=== PATIENT | male | born 1950 | race Hispanic/Latino ===

== ENCOUNTER 2018-12-06 15:46 | Emergency (ER) | payer OTHER ==
[~2018-12-06] VITALS: Ht 172.7 cm; Wt 103.4 kg
[~2018-12-06 15:46] MED LIST: ALLOPURINOL300 MG PO; AMITRIPTYLINE H25 MG PO; AMLODIPINE BESY10 MG PO; ASPIRIN CHEW81 MG PO; BENTYL20 MG PO; CIPRO500 MG PO; CYMBALTA30 MG PO; DOCUSATE SODIU100 MG PO; DOK100 MG PO; FAMOTIDINE20 MG PO; FEOSOL325 MG PO; FERROUS GLUCON324 M1 PO; FLAGYL500 MG PO; FLUOXETINE HCL20 MG PO; GLIPIZIDE5 MG PO; GUAIFENESI100 MG/5 M PO; HUMULIN R100 UNIT/2 SC; HYDROCHLOROTHIA25 MG PO; LEVEMIR100 UNIT/1 SC; LISINOPRIL10 MG PO; METFORMIN HCL500 MG PO; METOCLOPRAMIDE10 MG PO; METOPROLOL TART50 MG PO; MUCINEX DM ER1 EACH PO; OMEPRAZOLE40 MG PO; PRAZOSIN HCL2 MG PO; SIMVASTATIN20 MG PO; ULTRAM50 MG PO; VESICARE5 MG PO; VITAMIN D250000 UNIT PO; XANAX0.5 MG PO
--- OUTSIDE RECORDS SUMMARY | 2018-12-06 15:48 | XMS REPORT | Clinical Summary ---
Author Author 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 Last Filed Vital Signs Not on file Plan of Treatment Not on file Results Not on fileafter 12/05/2017 Insurance Payer Benefit Subscriber ID Type Phone Address Plan / Group [employer] [facility] [facility] [address] ([address]) [place] [phone]
--- OUTSIDE RECORDS SUMMARY | 2018-12-06 15:48 | XMS REPORT ---
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 Allergies, Adverse Reactions, Alerts This patient has no known allergies or adverse reactions. Medications This patient has no known medications. Results Test Description Test Time Test Comments Text Results Atomic Results Result Comments POCT-CREATININE 2016-09-22 11:06:00 POC-CREATININE (DEAN) (test ugpv=7337) 1.1 mg/dL 0.6-1.3 TESTED AT [address] [address] POC-EGFR (BEAKER) (test rpsx=5257) 67 mL/min/1.73M2
--- NOTE | 2018-12-06 17:35 | Diagnostic Imaging Report ---
ADDENDUM #1 The images and report were reviewed and signed by Dr. Latanya Elaine, neuroradiology faculty, on 12/06/2018 at 2222 hours. Signed by: Dr. Latanya Elaine M.D. on 12/06/2018 10:22 PM ORIGINAL REPORT Exam: Noncontrast head, maxillofacial, and cervical spine CT History: 68-year-old male, Fall, pain Comparison studies: None Technique: Axial images were obtained from the brain , face, and cervical spine. Coronal and sagittal images reconstructed from the axial data. Dose modulation, iterative reconstruction, and/or weight based adjustment of the mA/kV was utilized to reduce the radiation dose to as low as reasonably achievable. Intravenous contrast: None Findings: Head CT: Scalp/skull: Right frontal scalp swelling. No fractures, blastic or lytic lesions. Sulci/Ventricles: Mildly prominent. No hydrocephalus. Extra-axial spaces: No masses. No fluid collections. Parenchyma: Mild scattered white matter hypodensities compatible with microvascular ischemic angiopathy.. No masses, hemorrhage, acute or chronic cortical vascular insults. Sellar/suprasellar region: No abnormalities. Craniocervical junction: Patent foramen magnum. No Chiari one malformation. Maxillofacial CT: Soft tissues: Soft tissue swelling over the nasal bridge and over the cartilaginous portion of the nose. Bones: No fractures or bone abnormalities. No definitive nasal bone fracture. Orbits: Globes: Intact Extra or intraconal abnormalities: None. Cervical spine CT: Airway: Patent. Fractures: None seen, however visualization of the lower cervical spine is limited due to photon starvation from body habitus. Soft tissues: No gross abnormalities. Atlantoaxial articulation: Intact. Alignment: Normal lordosis. No scoliosis. Cervicomedullary junction: No abnormalities. Patent foramen magnum. Vertebrae: No infection or neoplasm. Degenerative changes: Multilevel disc degenerative changes with large flowing osteophytes anteriorly from C5 through T1.. Incidental findings: None. IMPRESSION: Head/maxillofacial CT: Mild soft tissue swelling over the low right frontal scalp and nose without underlying fracture or intracranial abnormality. Chronic findings: 1. Mild white matter microvascular ischemic changes. 2. Mild generalized volume loss. Cervical spine CT: 1. No acute abnormalities. 2. Cannot adequately evaluate for ligament, spinal cord and or vascular abnormalities. Preliminary report was provided by the neuroradiology fellow. Final read to follow. Signed by: Raffaele Benitez MD on 12/06/2018 5:32 PM
--- NOTE | 2018-12-06 17:41 | Diagnostic Imaging Report ---
HAND BILATERAL 3 OR MORE VIEWS - 3 views HISTORY: Status post fall COMPARISON: None available. FINDINGS: Bones: Comminuted fracture of the base of the right fifth metacarpal. Transverse fracture through the base of the right fifth proximal phalanx. The alignment is near anatomic. 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 Bilateral ulnar minus variance Soft tissues: Soft tissue swelling about the right fifth metacarpal and base of the fifth proximal phalanx. IMPRESSION: Comminuted fracture of the base of the right fifth metacarpal and transverse, nondisplaced fracture through the base of the right fifth proximal phalanx. Signed by: Raffaele Benitez MD on 12/06/2018 5:38 PM
[2018-12-06] MEDS ORDERED: LIDOCAINE HCL 1% 2 ML AMP INJ NR (18:30)
[2018-12-06] MEDS ORDERED: BACITRACIN ZINC 0.9GM TP ONE (18:30)
[2018-12-06] MEDS ORDERED: IBUPROFEN 400 MG TAB PO PRN (18:45)
[2018-12-06] MEDS ORDERED: HYDROMORPHONE 1MG/1ML INJ IM STA (20:07)
[2018-12-06] MEDS ORDERED: HYDROMORPHONE 2MG/ML 2 MG/ML ML ONE (20:16)
== END 2018-12-06 21:22 | disposition home or self-care (01) ==
LOC: ER 15:46
DX: S52.572A Other intraarticular fracture of lower end of left radius, initial encounter for closed fracture (principal); S00.31XA Abrasion of nose, initial encounter; S62.346A Nondisplaced fracture of base of fifth metacarpal bone, right hand, initial encounter for closed fracture; S62.646A Nondisplaced fracture of proximal phalanx of right little finger, initial encounter for closed fracture; E11.9 Type 2 diabetes mellitus without complications; S01.81XA Laceration without foreign body of other part of head, initial encounter; W01.0XXA Fall on same level from slipping, tripping and stumbling without subsequent striking against object, initial encounter; Y92.009 Unspecified place in unspecified non-institutional (private) residence as the place of occurrence of the external cause; Z79.82 Long term (current) use of aspirin; Z79.4 Long term (current) use of insulin; Z88.5 Allergy status to narcotic agent
CPT/HCPCS: 12011; 29125; 70450; 70486; 72125; 73130; 96372; 99283; J1170; J2001

== ENCOUNTER 2021-01-20 11:07 | Observation (INO) | payer OTHER ==
[~2021-01-20] VITALS: Ht 172.7 cm; Wt 103.4 kg
[2021-01-20] MEDS ORDERED: SODIUM CHLORIDE 0.9% 500ML 500 ML IV ONE (11:45)
[2021-01-20] MEDS ORDERED: DEXTROSE 50% SYRINGE 50 ML IV STA ×2 (11:53→15:50)
[2021-01-20] MEDS ORDERED: DEXTROSE 5% 1,000 ML IV SCH (12:00)
[2021-01-20] MEDS ORDERED: DEXTROSE 50% SYRINGE 50 ML IV ONE (12:01)
[2021-01-20] MEDS: OCTREOTIDE ACETATE 0.05 MG/ML AMP SQ SCH ×2 (12:26→19:37)
[2021-01-20 12:59] LABS: CREATINE KINASE MB 2.2 ng/mL (0-5.0)
[2021-01-20 13:10] LABS: BASOPHILS % 0.4 % (0.0-1.0); EOSINOPHILS # (AUTO) 0.4 (0.0-0.4); EOSINOPHILS % 3.8 % (0.0-6.0); HEMATOCRIT 35.6 % (38.2-49.6); HEMOGLOBIN 11.8 g/dL (14.0-18.0); LYMPHOCYTES # (AUTO) 1.7 (1.0-3.2); MEAN CORPUSCULAR HGB CONC 33.1 g/dL (31-35); MEAN CORPUSCULAR VOLUME 96.5 fL (81-99); MONOCYTES # (AUTO) 0.7 (0.2-0.8); MONOCYTES % 7.2 % (4.4-11.3); NEUTROPHILS # (AUTO) 6.8 (2.1-6.9); NEUTROPHILS % 70.3 % (38.7-80.0); PLATELET COUNT 208 x10e3/uL (140-360); RED BLOOD COUNT 3.69 x10e6/uL (4.3-5.7); RED CELL DISTRIBUTION WIDTH 13.9 % (11.7-14.4)
[2021-01-20 13:15] LABS: ABG HCO3 25 mmol/L (22-26); ABG PCO2 45 mmHg (35-45); ABG PH 7.35 (7.35-7.45); ABG PO2 93 mmHg (80-105); ABG TCO2 26
[2021-01-20 13:33] LABS: ALBUMIN 3.8 g/dL (3.5-5.0); ALBUMIN/GLOBULIN RATIO 1.1 (0.8-2.0); ANION GAP 10.2 mmol/L (8-16); CALCIUM 8.5 mg/dL (8.4-10.2); CREATININE, SERUM 2.53 mg/dL (0.72-1.25); MAGNESIUM 1.9 MG/DL (1.3-2.1); POTASSIUM 4.2 mmol/L (3.5-5.1)
[2021-01-20 15:42] LABS: CLARITY,URINE CLEAR (CLEAR); COLOR,URINE YELLOW (YELLOW); LEUKOCYTE ESTERASE ,URINE NEGATIVE (NEGATIVE); NITRITE,URINE NEGATIVE (NEGATIVE)
[2021-01-20 15:43] LABS: KETONES,URINE NEGATIVE (NEGATIVE); PROTEIN,URINE DIPSTICK 1+ (NEGATIVE); URINE UROBILINOGEN 0.2 mg/dL (0.2 - 1)
[2021-01-20] MEDS ORDERED: DEXTROSE 50% SYRINGE 50 ML IV PRN ×2 (15:45→16:15)
[2021-01-20] MEDS ORDERED: ONDANSETRON HCL INJ 2MG/ML 2ML 2 MG/ML VIAL IV PRN (15:45)
[2021-01-20 15:46] LABS: AMPHETAMINES SCREEN,URINE NEGATIVE (NEGATIVE); BENZODIAZEPINES SCREEN,URINE POSITIVE (NEGATIVE); PHENCYCLIDINE SCREEN,URINE NEGATIVE (NEGATIVE)
[2021-01-20] MEDS ORDERED: HYDRALAZINE HCL 20 MG/ML VIAL IV PRN (16:15)
[2021-01-20] MEDS ORDERED: ACETAMINOPHEN 325 MG TAB PO PRN (16:15)
[2021-01-20] MEDS ORDERED: DEXTROSE 5%/0.9% SOD CHL 1,000 ML IV SCH (16:45)
[2021-01-20 17:17] VITALS: BP 154/88
[2021-01-20 18:14] VITALS: BP 154/88
[2021-01-20 19:05] VITALS: BP 128/76
[2021-01-20 20:30] VITALS: BP 128/76
[2021-01-20] MEDS ORDERED: ROPINIROLE HCL1 MG PO (20:45)
[2021-01-20] MEDS ORDERED: OXYBUTYNIN CHLOR5 M1 PO (20:45)
[2021-01-20] MEDS ORDERED: CETIRIZINE HCL10 M1 PO (20:45)
[2021-01-20] MEDS ORDERED: FUROSEMIDE40 MG PO (20:45)
[2021-01-20] MEDS ORDERED: VICODIN HP 10-1 EAC1 PO (20:45)
[2021-01-20] MEDS ORDERED: NEURONTIN300 MG PO (20:45)
[2021-01-20] MEDS ORDERED: VITAMIN D350 MCG PO (20:45)
[2021-01-20] MEDS ORDERED: METHOCARBAMOL500 MG PO (20:45)
[2021-01-20] MEDS ORDERED: B-12500 MCG PO (20:45)
[2021-01-20] MEDS ORDERED: ALENDRONATE SOD70 MG PO (20:45)
[2021-01-20 21:21] LABS: CREATINE KINASE MB 7.1 ng/mL (0-5.0)
[2021-01-20] MEDS ORDERED: LORATADINE 10 MG TAB PO ONE (21:45)
[2021-01-20] MEDS: DEXTROSE 5%/0.9% SOD CHL 1,000 ML IV SCH (23:05)
[2021-01-21] MEDS: OCTREOTIDE ACETATE 0.05 MG/ML AMP SQ SCH ×3 (00:23→12:00)
[2021-01-21 01:22] VITALS: BP 118/74
[2021-01-21 05:20] LABS: BASOPHILS # (AUTO) 0.1 (0.0-0.1); BASOPHILS % 0.5 % (0.0-1.0); EOSINOPHILS # (AUTO) 0.3 (0.0-0.4); EOSINOPHILS % 2.6 % (0.0-6.0); HEMOGLOBIN 13.4 g/dL (14.0-18.0); LYMPHOCYTES % 16.7 % (18.0-39.1); MEAN CORPUSCULAR HEMOGLOBIN 31.5 pg (28-32); MEAN CORPUSCULAR HGB CONC 33.5 g/dL (31-35); MEAN CORPUSCULAR VOLUME 94.1 fL (81-99); MONOCYTES # (AUTO) 0.7 (0.2-0.8); MONOCYTES % 5.7 % (4.4-11.3); NEUTROPHILS # (AUTO) 8.7 (2.1-6.9); NEUTROPHILS % 74.2 % (38.7-80.0); PLATELET COUNT 255 x10e3/uL (140-360); RED BLOOD COUNT 4.25 x10e6/uL (4.3-5.7); RED CELL DISTRIBUTION WIDTH 13.5 % (11.7-14.4)
[2021-01-21 05:37] VITALS: BP 131/83
[2021-01-21 06:02] LABS: ALBUMIN 3.8 g/dL (3.5-5.0); ALBUMIN/GLOBULIN RATIO 0.9 (0.8-2.0); ANION GAP 13.7 mmol/L (8-16); CALCIUM 9.1 mg/dL (8.4-10.2); CHOL/HDL RATIO 2.9 (3.9-4.7); CREATININE, SERUM 2.17 mg/dL (0.72-1.25); POTASSIUM 4.7 mmol/L (3.5-5.1)
[2021-01-21 06:21] LABS: CREATINE KINASE MB 5.9 ng/mL (0-5.0)
[2021-01-21 08:00] VITALS: BP 139/89
[2021-01-21] MEDS ORDERED: LORATADINE 10 MG TAB PO SCH (09:00)
[2021-01-21] MEDS ORDERED: FLUTICASONE PROPIONATE NASAL SPRAY NS SCH (09:30)
[2021-01-21] MEDS: DEXTROSE 5%/0.9% SOD CHL 1,000 ML IV SCH (09:59)
[2021-01-21 10:02] VITALS: BP 139/89
[2021-01-21 11:46] VITALS: BP 134/90
[2021-01-21] MEDS ORDERED: GUAIFENESIN 600MG/DEXTROMETHORPHAN 30MG TABSR PO PRN (14:15)
[2021-01-21] MEDS ORDERED: DOCUSATE SODIUM 100 MG CAP PO PRN (14:15)
[2021-01-21] MEDS ORDERED: DICYCLOMINE HCL 20 MG TAB PO PRN (14:15)
[2021-01-21] MEDS ORDERED: HYDROCODONE/APAP 10MG-325MG TAB PO PRN (14:15)
[2021-01-21 16:00] VITALS: BP 151/92
[2021-01-21] MEDS ORDERED: GLIPIZIDE 5 MG TAB PO SCH (16:30)
[2021-01-21] MEDS ORDERED: ASPIRIN 81 MG CHEW TAB PO SCH (17:00)
[2021-01-21] MEDS ORDERED: METOPROLOL TARTRATE 50 MG TAB PO SCH (17:00)
[2021-01-21] MEDS ORDERED: GABAPENTIN 300 MG CAP PO SCH (17:00)
[2021-01-21] MEDS ORDERED: AMITRIPTYLINE HCL 25 MG TAB PO SCH (21:00)
[2021-01-21] MEDS ORDERED: SIMVASTATIN 20 MG TAB PO SCH (21:00)
[2021-01-22] MEDS ORDERED: PANTOPRAZOLE SOD 40 MG TABEC PO SCH (07:30)
[2021-01-22] MEDS ORDERED: ALLOPURINOL 300 MG TAB PO SCH (09:00)
[2021-01-22] MEDS ORDERED: DULOXETINE HCL 30 MG DELAYED RELEASE PO SCH (09:00)
[2021-01-22] MEDS ORDERED: AMLODIPINE BESYLATE 10 MG TAB PO SCH (09:00)
[2021-01-22] MEDS ORDERED: OXYBUTYNIN CHLORIDE XL 5 MG TAB PO SCH (09:00)
== END 2021-01-21 16:33 | disposition home or self-care (01) ==
LOC: ER 11:40 → INTOOBSV 15:38 → ERHOLD 15:38 → MED/SURG2 16:40
PROVIDERS: ADMIT Internal Medicine; ATTEND Internal Medicine
DX: T42.4X1A Poisoning by benzodiazepines, accidental (unintentional), initial encounter (principal); Y92.019 Unspecified place in single-family (private) house as the place of occurrence of the external cause; E11.649 Type 2 diabetes mellitus with hypoglycemia without coma; E78.00 Pure hypercholesterolemia, unspecified; N17.9 Acute kidney failure, unspecified; E11.22 Type 2 diabetes mellitus with diabetic chronic kidney disease; I12.9 Hypertensive chronic kidney disease with stage 1 through stage 4 chronic kidney disease, or unspecified chronic kidney disease; N18.9 Chronic kidney disease, unspecified; G47.30 Sleep apnea, unspecified; G89.29 Other chronic pain; Z96.652 Presence of left artificial knee joint; Z83.3 Family history of diabetes mellitus; Z82.49 Family history of ischemic heart disease and other diseases of the circulatory system; Z88.5 Allergy status to narcotic agent; Z79.4 Long term (current) use of insulin
CPT/HCPCS: 36415 ×2; 36600; 51700; 70450; 71045; 80053 ×2; 80061; 80307; 80320; 80329; 81001; 82550 ×2; 82553 ×2; 82805; 82948 ×2; 83735; 83880; 84484 ×2; 85025 ×2; 87086; 93005; 96360; 96361; 99251; 99285; G0378 ×2; J2354 ×2; J7040; J7042 ×2; J7070; J7799

== ENCOUNTER → 2021-02-06 | Emergency (ER) | payer OTHER ==
[~2021-02-06] VITALS: Ht 172.7 cm; Wt 110.7 kg
[~2021-02-06] MED LIST changes: +ALENDRONATE SOD70 MG PO; +B-12500 MCG PO; +CETIRIZINE HCL10 M1 PO; +CYCLOBENZAPRINE5 MG PO; +DEXAMETHASONE 4 MG TAB ONE; +FUROSEMIDE40 MG PO; +KETOROLAC TROMETHAMINE 30 MG/ML VIAL ONE; +LIDOCAINE 4% PATCH TP ONE; +METHOCARBAMOL500 MG PO; +NEURONTIN300 MG PO; +OXYBUTYNIN CHLOR5 M1 PO; +ROPINIROLE HCL1 MG PO; +VICODIN HP 10-1 EAC1 PO; +VITAMIN D350 MCG PO
[2021-02-06] MEDS: KETOROLAC TROMETHAMINE 60 MG/2 ML VIAL IM ONE (12:21)
[2021-02-06] MEDS: LIDOCAINE 4% PATCH TP SCH (12:21)
[2021-02-06] MEDS: DEXAMETHASONE SOD PHOS 10 MG/1 ML VIAL IM ONE (12:21)
[2021-02-06] MEDS: ACETAMINOPHEN 325 MG TAB PO ONE (12:21)
== END | disposition home or self-care (01) ==
LOC: ER 12:30
DX: M54.5 Low back pain (principal); I10 Essential (primary) hypertension; E11.9 Type 2 diabetes mellitus without complications; Z87.19 Personal history of other diseases of the digestive system; G89.29 Other chronic pain
CPT/HCPCS: 99282; J1885; J8540